=== PATIENT | female | born 1985 | race Caucasian/White ===

== ENCOUNTER 2017-01-24 17:02 | Emergency (ER) | payer MEDICAID ==
[~2017-01-24] VITALS: Ht 167.6 cm; Wt 75.5 kg
[~2017-01-24 17:02] MED LIST: PREN1TAB49 PO
[2017-01-24 17:04] VITALS: Ht 167.6 cm; Wt 75.5 kg
[2017-01-24] MEDS ORDERED: LIDOCAINE 1% (MDV) 20 ML INJ SC ONE (18:30)
[2017-01-24] MEDS ORDERED: IBUPROFEN 600 MG TAB PO ONE (18:30)
[2017-01-24] MEDS ORDERED: IBUP-1542 PO (18:42)
[2017-01-24] MEDS ORDERED: DOXY100T20 PO (18:42)
[2017-01-24] MEDS ORDERED: ACET1TAB40 PO (18:42)
--- NOTE | 2017-01-24 18:48 | ERD ---
ER Documentation Chief Complaint Chief Complaint Pt with T foot ingrown toenail X 2 days. HPI This 31-year-old female presents with pain in her right big toe for the last 2 days. She gives a history of attempting to cut her nail and cut down to the Geri. She believes there is a nail portion still stuck underneath the skin. She complains of redness and fever immediately afterwards but did not measure her temperature. She felt there was some pus as well. ROS All systems reviewed and are negative except as per history of present illness. Medications Home Meds Active Scripts Doxycycline Hyclate* (Doxycycline Hyclate*) 100 Mg Tablet.dr, 100 MG PO BID for 7 Days, TAB Prov:KENDY DONALDSON MD 01/24/17 Acetaminophen with Codeine (Acetaminophen-Cod #3 Tablet) 1 Each Tablet, 1 TAB PO Q6H Y for PAIN, #7 TAB Prov:KENDY DONALDSON MD 01/24/17 Ibuprofen* (Motrin*) 600 Mg Tab, 600 MG PO Q6, #20 TAB Prov:KENDY DONALDSON MD 01/24/17 Reported Medications Vits W-Ca,Fe,Fa(<1MG) () 1 Tab Tablet, 1 TAB PO 06/03/11 Allergies Allergies: Coded Allergies: No Known Drug Allergies (Verified Allergy, 11/22/10) PMhx/Soc History of Surgery: Yes (D&C) Anesthesia Reaction: No Hx Neurological Disorder: No Hx Respiratory Disorders: No Hx Cardiac Disorders: No Hx Psychiatric Problems: No Hx Miscellaneous Medical Probl: No Hx Alcohol Use: No Hx Substance Use: No Hx Tobacco Use: No Smoking Status: Never smoker Physical Exam Vitals Vital Signs Date Time Temp Pulse Resp B/P Pulse Ox O2 Delivery O2 Flow Rate FiO2 01/24/17 17:04 97.1 92 18 128/81 100 Physical Exam Const: [] Alert, [id number]. Head: Atraumatic Eyes: Normal Conjunctiva ENT: Normal External Ears, Nose and Mouth. Neck: Full range of motion..~ No meningismus. Resp: Clear to auscultation bilaterally Cardio: Regular rate and rhythm, no murmurs Abd: Soft, non tender, non distended. Normal bowel sounds Skin: No petechiae or rashes Back: No midline or flank tenderness Ext: No cyanosis, or edema. Right big toe on the medial aspect shows a avulsed edge of the toenail. There is some diffuse tenderness without bony tenderness or deformities seen redness without warmth, induration or streaking. There is no purulent discharge. Neur: Awake and alert Psych: Normal Mood and Affect Results 24 hrs Current Medications Medications (Trade) Dose Ordered Sig/Lalo Route PRN Reason Start Time Stop Time Status Last Admin Dose Admin Ibuprofen (Motrin) 600 mg ONCE ONCE PO 01/24/17 18:30 1217 18:31 DC 17 18:24 Lidocaine (Xylocaine 1% (Mdv) 20 ml) 20 ml ONCE ONCE SC 01/24/17 18:30 1218 18:31 DC Procedures/MDM She presents with signs and symptoms of a partially avulsed ingrown toenail. There is some slight irritation but no signs of bony tenderness to suggest osteomyelitis. Patient was given ibuprofen for pain. Procedure note-right big toe was anesthetized using lidocaine via digital block via sterile technique. The ingrown portion of the remaining nail was removed using clamps and scissors. Wound is clean after observation. Wound was dressed and patient tolerated procedure well. Patient was treated with ibuprofen, instructions for wound care and doxycycline primary care follow-up. There is no evidence of osteomyelitis, abscess, sepsis , deficits or fracture by history. Patient should otherwise return for worsening redness, fevers, new worsening symptoms. The patient was stable with no new complaints during the ER course. Clinically, there is no current evidence to suggest meningitis, sepsis, acute abdomen, pneumonia, acute coronary syndrome, pulmonary embolism, or any other emergent condition appearing to require further evaluation or hospitalization. The patient should certainly return for any new or worsening symptoms per the aftercare instructions. They should otherwise follow-up with her primary care doctor for reevaluation this week.. Departure Diagnosis: Primary Impression: Nail problem Condition: Stable Patient Instructions: Ingrown Toenail, Excised Additional Instructions: Cheque otro vez con scherer doctor primario en el proximo jacques or regresa para mas o nueva simptomas. KENDY DONALDSON MD Jan 24, 2017 18:48
== END 2017-01-24 18:55 | disposition home or self-care (01) ==
LOC: FTE 17:02
DX: L60.0 Ingrowing nail (principal)
CPT/HCPCS: 11765; Z7502; Z7610